=== PATIENT | male | born 1985 | race Caucasian/White ===

== ENCOUNTER 2016-11-11 05:44 | Emergency (ER) | payer OTHER, MEDICAID ==
[~2016-11-11] VITALS: Ht 177.8 cm; Wt 119.5 kg
[~2016-11-11 05:44] MED LIST: AMPH20TA2 PO; BUPR100T6 PO; CIPR-193 PO; DABI150C PO; FIORICET PO; HYDR4TAB18 PO; MERC50TA10 PO; MESA400T9 PO; METR500T14 PO; ONDA4TAB8 PO; PRED-248 PO; PROM25SU40 PR; WARF10TA PO
[2016-11-11 05:52] VITALS: Ht 177.8 cm; Wt 119.5 kg
[2016-11-11] MEDS ORDERED: HYDROmorphONE 1 MG/ML SYG IV STA ×3 (06:14→08:41)
[2016-11-11] MEDS ORDERED: ONDANSETRON 4 MG INJ IV STA ×3 (06:14→08:41)
[2016-11-11] MEDS ORDERED: SOD CHLORIDE 0.9% 1,000 ML IV STA (06:14)
[2016-11-11] MEDS ORDERED: DIPHENHYDRAMINE 50 MG INJ IV ONE ×2 (07:00→09:00)
--- NOTE | 2016-11-11 07:04 | ERD ---
ER Documentation Chief Complaint Date/Time DATE: 11/11/16 TIME: 06:57 Chief Complaint diffuse abd pain since , hx- chron's disease HPI This is a 31-year-old male with a known history of Crohn's disease and migraine headaches. The patient presents to the emergency department stating he had developed a sudden onset of left lower quadrant that does not radiate. Indicates that this pain has been present for the past 12 hours. He has had 6 episodes of nonbloody nonbilious emesis. The patient took oral Zofran with no improvement of his symptoms. He states the left lower quadrant pain is a dull achy sensation. The pain does not radiate. There is no alleviating or exacerbating factors. He states this is similar nature to his previous Crohn's exacerbations. He has not experienced any hemoptysis hematemesis or melanotic stools as the emesis was nonbloody nonbilious. The patient had no fevers no shaking or chills. The patient had a history of left testicular torsion with repair of both the left and the right testicle performed by Dr. Adrian Blank in February 2016 at [facility]. Today he denies any testicular pain or swelling. He has no gross hematuria. ROS All systems reviewed and are negative except as per history of present illness. Medications Home Meds Reported Medications Varenicline Tartrate (Chantix) 1 Mg Tablet, 1 MG PO BID, TAB 11/11/16 Acetamin/Butalbital/Caffeine* (Fioricet*) 1 Tab Tab, 1 TAB PO Q4H Y for PAIN LEVEL 1-5, TAB 04/29/16 Amphet Ppa-Baiioq-A-Amphet (Adderall) 20 Mg Tablet, 20 MG PO DAILY, TAB 04/29/16 Ondansetron Hcl* (Zofran*) 4 Mg Tablet, 4 MG PO Q6H Y for NAUSEA AND OR VOMITING , TAB 04/29/16 Metronidazole* (Metronidazole*) 500 Mg Tablet, 500 MG PO DAILY Y for FLARE UP, TAB 04/29/16 Hydromorphone Hcl* (Dilaudid*) 4 Mg Tablet, 4 MG PO Q4H Y for PAIN, TAB 04/29/16 Prednisone (Prednisone) 10 Mg Tablet, 10 MG PO DAILY 06/06/12 Mercaptopurine (Mercaptopurine) 50 Mg Tablet, 50 MG PO DAILY 06/06/12 Discontinued Reported Medications Dabigatran Etexilate Mesylate* (Pradaxa*) 150 Mg Capsule, 150 MG PO KRISTIEE GRAHAM MUSE SUN, CAP 04/29/16 Promethazine Hcl* (Phenergan* Supp) 25 Mg/Supp.rect Supp.rect, 25 MG KS Q6H Y for NAUSEA AND OR VOMITING, SUPP.RECT 04/29/16 Warfarin Sodium* (Coumadin*) 10 Mg Tablet, 9.5 MG PO MONWEDFRI, TAB 04/29/16 Ciprofloxacin Hcl* (Ciprofloxacin Hcl*) 250 Mg Tablet, 250 MG PO DAILY Y for FLARE UP, #14 TAB 04/29/16 Bupropion Hcl* (Wellbutrin*) 100 Mg Tablet, 100 MG PO DAILY, TAB 04/29/16 Mesalamine* (Asacol*) 400 Mg Tablet.dr, 400 MG PO DAILY 06/06/12 Allergies Allergies: Coded Allergies: morphine (Verified Allergy, Intermediate, hives on arm, 11/11/16) NSAIDS (Non-Steroidal Anti-Inflamma (Verified Allergy, Unknown, 11/11/16) amoxicillin (Verified Allergy, Unknown, 11/11/16) cephalexin (Verified Allergy, Unknown, 11/11/16) sumatriptan (Verified Allergy, Unknown, 11/11/16) PMhx/Soc History of Surgery: Yes (FRANCIS. MASTECTOMY,BOWEL RESECTION, APPY 09.) Anesthesia Reaction: No Hx Neurological Disorder: No Hx Respiratory Disorders: No Hx Cardiac Disorders: No Hx Psychiatric Problems: No Hx Miscellaneous Medical Probl: Yes (HX BREAST CA, CHEMO, CHRONHS DISEASE) Hx Alcohol Use: No Hx Substance Use: No Hx Tobacco Use: Yes Physical Exam Vitals Vital Signs Date Time Temp Pulse Resp B/P Pulse Ox O2 Delivery O2 Flow Rate FiO2 11/11/16 05:52 98.4 113 20 143/88 98 Physical Exam Constitutional:Well-developed. Well-nourished. HEENT:Normocephalic. Atraumatic.Pupils were equal round reactive to light. Moist mucous membranes.No tonsillar exudates. Neck: No nuchal rigidity. No lymphadenopathy. No posterior cervical spine tenderness or step-offs. Respiratory: Not using accessory muscles of respiration.Lungs were clear to auscultation bilaterally. No rhonchi. No rales. No wheezing. Cardiovascular: Regular rate regular rhythm.No murmurs. No rubs were appreciated.S1, S2 normal. Distal pulses are palpable 2+ bilaterally. GI: Abdomen was soft. Tenderness in the left lower quadrant. Non Distended. No pulsatile abdominal masses or bruits. No rebound. No guarding. Bowel sounds were present and normal. : No testicular tenderness or asymmetrical testicular swelling. Normal light of both testicles. Cremaster reflex intact. Muscle skeletal: Full range of motion of both the upper and lower extremities bilaterally.Normal muscle tone.No assymetrical calf tenderness or swelling. Skin: No petechia, no purpura. No lesions on the palms or the soles of the feet. No maculopapular rash. NEURO: Patient was alert, awake, orientated x3.No facial droop. Gait observed and normal with no ataxia.Speech had regular rate and rhythm. No focal neurological deficits. Result Diagram: 11/11/16 0630 11/11/16 0630 Results 24 hrs Laboratory Tests Test 11/11/16 06:30 Activated Partial Thromboplast Time 27.5Sec Alanine Aminotransferase (ALT/SGPT) 55IU/L Albumin 4.5g/dl Albumin/Globulin Ratio 1.36 Alkaline Phosphatase 61IU/L Amylase Level 53U/L Anion Gap 18 Aspartate Amino Transf (AST/SGOT) 31IU/L Basophils # 0.010^3/ul Basophils % 0.3% Blood Morphology Comment Blood Urea Nitrogen 15mg/dl Calcium Level 9.3mg/dl Carbon Dioxide Level 27mmol/L Chloride Level 103mmol/L Creatinine 1.33mg/dl Direct Bilirubin 0.00mg/dl Eosinophils # 0.210^3/ul Eosinophils % 2.2% Globulin 3.30g/dl Glucose Level 89mg/dl Hematocrit 42.2% Hemoglobin 14.2g/dl INR International Normalized Ratio 0.94 Indirect Bilirubin 0.5mg/dl Lipase 37U/L Lymphocytes # 2.810^3/ul Lymphocytes % 29.9% Mean Corpuscular Hemoglobin 29.6pg Mean Corpuscular Hemoglobin Concent 33.5g/dl Mean Corpuscular Volume 88.2fl Mean Platelet Volume 8.1fl Monocytes # 0.910^3/ul Monocytes % 9.7% Neutrophils # 5.410^3/ul Neutrophils % 57.9% Nucleated Red Blood Cells # 0.010^3/ul Nucleated Red Blood Cells % 0.0/100WBC Platelet Count 92778^3/UL Potassium Level 3.5mmol/L Prothrombin Time 12.6Sec Prothrombin Time Ratio 1.0 Red Blood Count 4.7910^6/ul Red Cell Distribution Width 14.6% Sodium Level 144mmol/L Total Bilirubin 0.5mg/dl Total Protein 7.8g/dl White Blood Count 9.310^3/ul Current Medications Medications (Trade) Dose Ordered Sig/Ramone Route PRN Reason Start Time Stop Time Status Last Admin Dose Admin Sodium Chloride (NS) 1,000 ml @ 1,000 mls/hr Q1H STAT IV 11/11/16 06:14 11/11/16 07:13 DC 11/11/16 07:01 Hydromorphone HCl (Dilaudid) 1 mg ONCE STAT IV 11/11/16 06:14 11/11/16 06:16 DC 11/11/16 06:42 Ondansetron HCl (Zofran Inj) 4 mg ONCE STAT IV 11/11/16 06:14 11/11/16 06:16 DC 11/11/16 06:41 Diphenhydramine HCl (Benadryl) 25 mg ONCE ONCE IV 11/11/16 07:00 11/11/16 07:01 DC 11/11/16 06:42 Ondansetron HCl (Zofran Inj) 4 mg ONCE STAT IV 11/11/16 06:38 11/11/16 06:39 DC 11/11/16 06:42 Hydromorphone HCl (Dilaudid) 1 mg ONCE STAT IV 11/11/16 06:38 11/11/16 06:39 DC 11/11/16 06:42 Acetaminophen/ Hydrocodone Bitart ([place] (5/325)) 2 tab ONCE ONCE PO 11/11/16 08:00 11/11/16 08:01 DC 11/11/16 08:03 Procedures/MDM This patient presented to the emergency department with abdominal pain and was seen and evaluated by myself. My differential diagnosis included but was not limited to abdominal aortic aneurysm, appendicitis, pancreatitis, perforated peptic ulcer, perforated viscus, Boerhaaves syndrome or visceral pain such as diverticulitis, DKA, esophagitis, hepatitis or bowel obstruction. The patient was placed on a taker off, continuous pulse oximetry, and IV access was established by nursing staff. The patient received IV Dilaudid Benadryl Zofran and IV fluids. The patient was requesting 2 mg of Dilaudid versus 1 mg of Dilaudid which was given to the patient. Roughly 30 minutes later he stated he was still in discomfort. I repeated abdominal examination and there is no peritoneal signs. I explained to the patient that I could not administer any further opiate IV analgesic medication due to the high potential for respiratory failure for another hour and therefore he was given p.o. [place] as he was requesting more further analgesic medication. He has an allergy to NSAIDs and therefore I could not administer IV Toradol. He Given that the patient was still complaining of left lower quadrant abdominal pain I did obtain a CT scan of the abdomen without contrast in order to prevent renal failure. There is no evidence of perforation or an acute life- threatening surgical abdomen. The patient had no leukocytosis and no electrolyte abnormalities. I explained the results to the patient and stated I did feel he could be safely discharged. He was given a further dose of analgesic medication prior to arrival which included another 2 mg of Dilaudid, IV Benadryl and Zofran. The patient was very adamant that he wanted his analgesic medication and had phoned the nursing supervisor inspecting due to him being unaware of the policy that I stated I would not give any further analgesic medication before 2 hour. Again in order to prevent respiratory failure due to the high dose of opiates mixed with antihistamines. Again at the time of discharge the patient felt comfortable being discharged home and was given a prescription of [place] for breakthrough pain. The patient was discharged home in fair condition. They were instructed to return to the emergency department at any time if there was any worsening of their condition. The patient stated they would follow up with their PCP in the next 24-48 hours to initiate a suitable medication regimen under the care of their PCP as well as to allow their PCP to monitor any drug reactions. The patient was discharged home with prescriptions after they gave informed consent to the new medication. They were also fully informed by myself on the adverse effects and adverse drug interactions in order to provide adequate safeguards to prevent possible adverse reactions to medications. Departure Diagnosis: Primary Impression: Abdominal pain Additional Impression: Exacerbation of Crohn's disease Condition: MAGALIE Dupree Nov 11, 2016 07:04
[2016-11-11] MEDS ORDERED: VARE1TAB20 PO (07:14)
[2016-11-11 07:40] LABS: BASOPHILS % 0.3 % (0.0-2.0); EOSINOPHILS # 0.2 10^3/ul (0.0-0.5); EOSINOPHILS % 2.2 % (0.0-7.0); HEMATOCRIT 42.2 % (42.0-52.0); HEMOGLOBIN 14.2 g/dl (14.0-18.0); LYMPHOCYTES # 2.8 10^3/ul (0.8-2.9); LYMPHOCYTES % 29.9 % (15.0-51.0); MEAN CORPUSCULAR HEMOGLOBIN 29.6 pg (29.0-33.0); MEAN CORPUSCULAR HGB CONC 33.5 g/dl (32.0-37.0); MEAN CORPUSCULAR VOLUME 88.2 fl (82.0-101.0); MEAN PLATELET VOLUME 8.1 fl (7.4-10.4); MONOCYTE # 0.9 10^3/ul (0.3-0.9); MONOCYTES % 9.7 % (0.0-11.0); NEUTROPHIL # 5.4 10^3/ul (1.6-7.5); NEUTROPHILS % 57.9 % (39.0-77.0); PLATELET COUNT 263 10^3/UL (140-440); RED BLOOD COUNT 4.79 10^6/ul (4.70-6.10); RED CELL DISTRIBUTION WIDTH 14.6 % (11.5-14.5); UNCORRECTED WBC 9.3 10^3/ul (4.8-10.8); WHITE BLOOD COUNT 9.3 10^3/ul (4.8-10.8)
[2016-11-11 07:47] LABS: ALBUMIN 4.5 g/dl (3.3-4.9)
[2016-11-11 07:48] LABS: POTASSIUM 3.5 mmol/L (3.5-5.1)
[2016-11-11 07:49] LABS: INR 0.94; PROTIME 12.6 Sec (12.2-14.2)
[2016-11-11 07:50] LABS: ALBUMIN/GLOBULIN RATIO 1.36; BILIRUBIN,INDIRECT 0.5 mg/dl (0-1.1); BILIRUBIN,TOTAL 0.5 mg/dl (0.2-1.3); CREATININE 1.33 mg/dl (0.61-1.24); PARTIAL THROMBOPLASTIN TIME 27.5 Sec (25.0-35.0); TOTAL PROTEIN 7.8 g/dl (6.1-8.1)
[2016-11-11 07:51] LABS: CALCIUM 9.3 mg/dl (8.4-10.2)
[2016-11-11 07:54] LABS: CONDITION 1; LH ANALYZER COMMENTS 1
[2016-11-11] MEDS ORDERED: HYDROCODONE/APAP (5/325) TAB PO ONE (08:00)
--- NOTE | 2016-11-11 08:42 | RADRPT ---
PROCEDURE: CT Abdomen and Pelvis without contrast. CLINICAL INDICATION: Abdominal pain. Periumbilical pain. TECHNIQUE: CT scan of the abdomen and pelvis without contrast was performed on a multi-slice CT [facility] without intravenous contrast. Coronal and sagittal reformatted images were obtained from the axial source images. Images were reviewed on a high-resolution PACS workstation. One or more of the following does reduction techniques were used: Automated exposure control; adjustment of the mA an d/or kV according to patient size; use of the aorta of reconstruction technique. The total exam CTD I equals 23.51 mGy and the total exam DLP equals 1653.3 mGy-cm. COMPARISON: None available. FINDINGS: There are mild dependent changes in the posterior lung bases. The lung bases are otherwise clear. Heart size is normal, and there is no evidence of pericardial thickening or effusion. There is diffuse decreased attenuation of the hepatic parenchyma consistent with fatty infiltration. The liver, spleen, and pancreas are otherwise normal given the limitations of a noncontrast CT exa mination. The gallbladder is normal. The adrenal glands are normal. The kidneys without renal calculus or hydronephrosis. The aorta is of normal caliber. There is no retroperitoneal lymph node enlargment. There is no evidence of large or small bowel obstruction. The appendix is not identified. There ar e multiple clips in the right lower quadrant in the region of the cecum likely related to prior appe ndectomy. No free fluid or fluid collections are identified. No inflammatory changes are seen. No enlarged pelvic sidewall lymph nodes are seen. The bladder is within normal limits. No free fl uid is identified. The inguinal regions are unremarkable. The bones are intact. IMPRESSION: 1. No CT of mass, lymphadenopathy, or inflammatory process. No CT evidence of urolithiasis. 2. Fatty infiltration of the liver. 3. Evidence of prior appendectomy. Recommend correlation with surgical history. RPTAT: KK .Moses Esparza MD, MD Date Time Electronically viewed and signed by .Moses Esparza MD, MD on 11/11/2016 08:42 .B/
[2016-11-11] MEDS ORDERED: ONDA8TAB14 PO (08:48)
[2016-11-11] MEDS ORDERED: HYDR-902 PO (08:48)
[2016-11-11 09:10] VITALS: BP 154/94; PULSE 71; RESP 18; TEMP 98.4
== END 2016-11-11 09:10 | disposition home or self-care (01) ==
LOC: E/R 05:44
DX: R10.32 Left lower quadrant pain (principal); K50.90 Crohn's disease, unspecified, without complications; R40.2142 Coma scale, eyes open, spontaneous, at arrival to emergency department; R40.2252 Coma scale, best verbal response, oriented, at arrival to emergency department; R40.2362 Coma scale, best motor response, obeys commands, at arrival to emergency department; Z85.3 Personal history of malignant neoplasm of breast; Z87.891 Personal history of nicotine dependence; Z79.01 Long term (current) use of anticoagulants
CPT/HCPCS: 74176; 80053; 82150; 83690; 85025; 85610; 85730; J1170; J1200; J2405; J7030; 96374; 96375; 96376

== ENCOUNTER 2017-10-27 08:04 | Emergency (ER) | END 2017-10-27 14:42 | disposition home or self-care (01) ==